=== PATIENT | female | born 1950 | race Caucasian/White ===

== ENCOUNTER 2016-04-08 05:56 | Inpatient (IN) | payer MEDICAID ==
[2016-04-01 15:29] VITALS: BMI 27.3
[~2016-04-08 05:56] MED LIST: ACETAMINOPHEN TAB 500 MG TAB PO ONE; DEXAMETHASONE SOD PHOSPHATE 10 MG/ML 1 ML VIAL IV ONE; HYDROmorphone 1 MG/ML 1 ML SYRINGE IVP PRN; LACTATED RINGERS 1,000 ML IV SCH; MELOXICAM 7.5 MG TAB PO ONE; MIDAZOLAM 2 MG/2 ML VIAL IV PRN; ONDANSETRON 4 MG/2 ML VIAL IVP ONE; ROPIVACAINE 246.25 MG, EPINEPHrine 0.5 MG, KETOROLAC 30 MG, cloNIDine HCL/PF 80 MCG, WA... MISCELLANE ONE; TRANEXAMIC ACID 1,000 MG in SODIUM CHLORIDE 0.9% 100 ML IVPB ONE
[2016-04-08] MEDS ORDERED: LIDOCAINE 1% 20 ML VIAL (10MG/ML) FOR IV START INTRADERMA ONE (06:45)
[2016-04-08] MEDS ORDERED: MIDAZOLAM 2 MG/2 ML VIAL ONE (07:30)
[2016-04-08] MEDS ORDERED: PROPOFOL 10 MG/ML 20 ML VIAL IV ONE (07:30)
[2016-04-08] MEDS: CLINDAMYCIN 900 MG in DEXTROSE 5% IN WATER 50 ML IVPB ONE ×4 (07:30→11:03)
[2016-04-08] MEDS ORDERED: LACTATED RINGERS 1,000 ML BAG IV ONE (07:30)
[2016-04-08] MEDS ORDERED: TRANEXAMIC ACID 1,000 MG/10 ML VIAL ONE (07:30)
[2016-04-08] MEDS ORDERED: SODIUM CHLORIDE 0.9% IRRIG 3,000 ML BAG IRRIGATION ONE (07:30)
[2016-04-08] MEDS ORDERED: SODIUM CHLORIDE 0.9% IRRIG 1,000 ML BTL IRRIGATION ONE (07:30)
[2016-04-08] MEDS ORDERED: fentaNYL (PF) 50 MCG/ML 2 ML AMP ONE (07:30)
[2016-04-08] MEDS ORDERED: HEPARIN SODIUM,PORCINE 10,000 UNIT/ML 1 ML VIAL ONE (07:30)
[2016-04-08] MEDS ORDERED: SODIUM CHLORIDE 0.9% 100 ML BAG ONE (07:30)
[2016-04-08] MEDS ORDERED: DEXTROSE 5% IN WATER 50 ML BAG ONE (07:30)
[2016-04-08] MEDS ORDERED: diphenhydrAMINE 50 MG/ML 1 ML VIAL ONE (07:30)
[2016-04-08] MEDS ORDERED: CLINDAMYCIN 150 MG/ML 6 ML VIAL ONE (07:30)
[2016-04-08] MEDS: CLINDAMYCIN 1,800 MG in SODIUM CHLORIDE 0.9% IRRIGATIO 3,000 ML IRRIGATION ONE ×2 (08:23→11:04)
[2016-04-08] MEDS: LACTATED RINGERS 1,000 ML IV ONE ×2 (08:50→11:04)
--- NOTE | 2016-04-08 09:04 | XR ---
EXAMINATION TYPE: XR Hip Limited LT DATE OF EXAM: 04/08/2016 8:58 AM COMPARISON: NONE HISTORY: Postop There is a prosthetic hip in near anatomic alignment. There is soft tissue edema and emphysema. IMPRESSION: 1. Postoperative change. Appears in near-anatomic alignment.
--- NOTE | 2016-04-08 09:05 | FL ---
EXAMINATION TYPE: FL guidance operating room DATE OF EXAM: 04/08/2016 8:58 AM HISTORY: Flouroscopy time 37 seconds of fluoroscopy provided. IMPRESSION: 1. Fluoroscopy time.
--- NOTE | 2016-04-08 09:06 | P.OP ---
Date of Procedure: 04/08/16 Preoperative Diagnosis: Severe osteoarthritis left hip Postoperative Diagnosis: Severe osteoarthritis left hip Procedure(s) Performed: Left total hip arthroplasty with a direct anterior approach Implants: Veliz and nephew Polarstem size 2 standard [employer]iz [employer] Nephew R3, 3 hole acetabular shell, 52 mm [employer]hew reflection 6.5 mm cancellus screw, 20 mm 2 [employer]hew R3, XLPE 20 acetabular liner Veliz [employer] Nephew Oxinium femoral head 36 m, +0 All components were press-fit. The articulation is ceramic on polyethylene. Anesthesia: spinal Surgeon: Reza Batres Grinding Machine Operator Automatic #1: Catalina Zaman Estimated Blood Loss (ml): 150 (65 mL returned with Cell Saver) Pathology: other (Femoral head) Condition: stable Disposition: PACU Indications for Procedure: After failure of conservative treatment we discussed the surgical and nonsurgical treatment options at length. Patient wishes to proceed with a total hip arthroplasty with a direct anterior approach. Complications specific to this procedure were discussed at length, including but not limited to infection, leg length discrepancy, dislocation, and nerve injury. Patient is aware of all these complications and informed consent was obtained Operative Findings: The operative findings are consistent with severe osteoarthritis of the left hip Description of Procedure: Patient was seen and evaluated in the preoperative area, consent was reviewed, and the surgical site was marked with a skin marker. Patient was then brought to the operating room and given prophylactic antibiotics intravenously. 1 g of Tranexamic acid was also given. A spinal anesthetic was administered by the anesthesia department. The patient was then placed on the hand table with the bony prominences well-padded. The hip area was then prepped and draped in usual sterile fashion. A universal timeout was then performed, which confirmed the patient's name, surgical site, ALLERGIES, and procedure being performed. Next the incision site was located at 1 cm distal and 1 cm lateral to the anterior superior iliac spine. The skin and subcutaneous tissues were sharply incised. Incision was carefully dissected down to the fascia overlying the tensor fascia tomas muscle. This fascia was then incised in line with the incision. Next, using blunt finger dissection, the tensor fascia tomas muscle was dissected off its investing fascia. The muscle was then carefully retracted laterally with a cobra retractor over the lateral neck of the femur. Next, the circumflex vessels were identified and cauterized using the AquaMantis device. The anterior hip capsule was then exposed. The capsule was then opened and an inverted T fashion. Retention sutures were placed in the inferior arms of the capsule. Cobra retractors were then placed intracapsularly. The proximal femur was then visualized. The femoral neck was then osteotomized appropriate level above the lesser trochanter. Small amount of traction was placed with the hand table. A small wedge of bone was then removed from the remaining femoral head. Next, using a corkscrew femoral head was easily removed from the acetabulum. On gross visual inspection, the femoral head had complete loss of articular cartilage in multiple periarticular osteophytes. Attention was then turned to the acetabulum. the acetabulum was exposed and any remaining labrum was excised. Sequential reaming of the acetabulum was performed using fluoroscopic guidance. When the appropriate size was reached, a trial was then placed. The position and fit of the trial was checked with fluoroscopy. The trial was then removed. Then, using fluoroscopic guidance, the final implant was impacted at 20 of anteversion and 40 of abduction, and fully seated in the acetabulum. 2 screws were then placed in the acetabulum. Again fluoroscopy was used to check position of the screws. Next, the liner was then impacted, with a 20 elevated liner located in the anterior superior quadrant. Component locking was confirmed. Attention was then directed to the femur. With the aid of the Binta table, the femur was externally rotated to approximately 130, extended, and abducted under the opposite leg. A side hook was then placed under the proximal femur, and the side hook elevator was used to elevate the proximal femur. Retractors were then placed. A capsular release was performed, as well as a release of the conjoined tendon, which afforded excellent visualization of the proximal femur. Next, a box osteotome was used to lateralize the proximal femur. A merchandising team lead was then used to locate the femoral canal. Sequential broaching was then performed with appropriate size which afforded excellent fixation in the proximal femur. The calcar was then planed. A trial was then placed with appropriate head and neck, and the hip was gently reduced with the aid of the Binta table. Fluoroscopy was then used to check position of the components, as well as to ensure equal leg lengths. The hip was then gently dislocated and the trials were then removed. Final implants were then impacted and the hip was again reduced. Final fluoroscopic x-rays confirmed that the components were in anatomic position, as well as equal leg lengths. The hip was also taken through range of motion, and found to be stable. The hip was then copiously irrigated with antibiotic solution with pulsatile lavage. The hip was then irrigated with Irrisept solution. The soft tissues were then injected with ropivacaine solution. A second dose of 1 g of Tranexamic acid was given. the fascia was then closed with 2-0 strata fix suture. The subcutaneous tissue was closed with 3-0 Vicryl. The subcuticular tissue was closed with 30 strata fix suture. The skin was then closed with Dermabond tape. The patient was then transferred to the recovery room in stable condition. The Asst. Catalina Zaman was required due to the complexity of surgery, and the need for skilled insurance assistant for positioning, draping, exposure, retraction, and closure of the wound.and closure of the wound.
[2016-04-08] MEDS ORDERED: MAGNESIUM HYDROXIDE 2,400 MG/10 ML CUP PO PRN (09:42)
[2016-04-08] MEDS ORDERED: HYDROmorphone 1 MG/ML 1 ML SYRINGE IVP PRN ×3 (09:42)
[2016-04-08] MEDS ORDERED: hydrOXYzine PAMOATE 25 MG CAP PO PRN (09:42)
[2016-04-08] MEDS ORDERED: ONDANSETRON 4 MG/2 ML VIAL IVP PRN (09:42)
[2016-04-08] MEDS ORDERED: NALOXONE 0.4 MG/ML 1 ML VIAL IV PRN (09:42)
[2016-04-08] MEDS ORDERED: DIAZEPAM 5 MG TAB PO PRN ×2 (09:42)
[2016-04-08] MEDS ORDERED: HYDROcodone/APAP 5-325MG 1 EACH TAB PO PRN (09:42)
--- NOTE | 2016-04-08 10:19 | XR ---
EXAMINATION TYPE: XR Hip Limited LT DATE OF EXAM: 04/08/2016 9:59 AM CLINICAL HISTORY: Left hip arthritis. TECHNIQUE: Single AP portable view of left hip is obtained immediately postoperatively. COMPARISON: Left hip x-ray January 29, 2016 FINDINGS: Metallic hardware from total left hip arthroplasty is seen and appears satisfactory in alig nment and position. There is evidence of recent surgery with subcutaneous gas noted laterally. IMPRESSION: Metallic hardware from left hip arthroplasty is satisfactory in position.
[2016-04-08] MEDS: CLINDAMYCIN 900 MG in DEXTROSE 5% IN WATER 50 ML IVPB SCH ×4 (13:58→23:05)
[2016-04-08] MEDS: SODIUM CHLORIDE 0.9% 1,000 ML IV SCH ×2 (14:00→23:05)
[2016-04-08] MEDS: HYDROcodone/APAP 5-325MG 1 EACH TAB PO PRN ×2 (16:03→22:00)
[2016-04-08] MEDS: ASPIRIN 325 MG TAB PO SCH (20:42)
[2016-04-08] MEDS ORDERED: SENNOSIDES-DOCUSATE SODIUM 1 EACH TAB PO SCH (21:00)
[2016-04-09 01:35] VITALS: RESP 16
[2016-04-09] MEDS: HYDROcodone/APAP 5-325MG 1 EACH TAB PO PRN ×3 (03:11→15:04)
[2016-04-09 07:10] LABS: Basophils % (A) 0 %; CH 29.2; CHCM 32.7; Eosinophils % (A) 1 %; HCT 37.3 % (34.0-46.0); HDW 2.35; Luc # (Auto) 0.17; Luc % (Auto) 2; Lymphocytes # (A) 1.7 k/uL (1.0-4.8); Lymphocytes % (A) 23 %; MCH 28.8 pg (25.0-35.0); MCHC 32.1 g/dL (31.0-37.0); MCV 89.7 fL (80.0-100.0); Mean Platelet Volume 7.4; Monocytes # (A) 0.5 k/uL (0-1.0); Monocytes % (A) 6 %; Neutrophils # (A) 4.8 k/uL (1.3-7.7); Neutrophils % (A) 67 %; RBC 4.15 m/uL (3.80-5.40); RDW 12.7 % (11.5-15.5); WBC 7.2 k/uL (3.8-10.6); WBC (Perox) 7.36
[2016-04-09 07:24] LABS: Anion Gap 10 mmol/L; Blood Urea Nitrogen 17 mg/dL (7-17); Calcium 8.5 mg/dL (8.4-10.2); Carbon Dioxide 20 mmol/L (22-30); Chloride 110 mmol/L (98-107); Glucose 107 mg/dL (74-99); Non-African American GFR(MDRD) >60 (>60 ml/min/1.73 sqM); Potassium 4.5 mmol/L (3.5-5.1); Sodium 140 mmol/L (137-145)
[2016-04-09 07:49] VITALS: BP 123/61; PULSE 72; TEMP 97.4
--- NOTE | 2016-04-09 08:22 | P.DS ---
Providers Date of admission: 04/08/16 05:56 Expected date of discharge: 04/09/16 Attending physician: Reza Batres Consults: 04/08/16 09:42 Consult Physician Routine Consulting Provider: Andrew Winters Reason/Comments: medical management Do you want consulting provider notified?: Yes Primary care physician: Andrew Winters - Discharge Diagnosis(es) (1) Status post left hip replacement Current Visit: Yes Status: Acute (2) Primary osteoarthritis of left hip Current Visit: Yes Status: Acute Hospital Course: This is a pleasant 65-year-old female who was last seen in our office with complaints of left hip pain. Patient has known history of degenerative arthritis of the left hip and presented to discuss options. After discussion consideration the patient elected to proceed with a left total hip arthroplasty. Patient was seen preoperatively medically cleared for surgery by Dr. Winters. Patient was admitted to [facility] and underwent left total hip arthroplasty. The procedure was performed without complications or sequelae. The patient has done well postoperatively. Pain has been are reasonably controlled and is progressing with physical therapy. Side with Dr. Reza Batres. The patient has no new complaints today. Patient denies shortness of breath, nausea or abdominal pain. The patient appears comfortable and in no acute distress. Dressing is clean dry and intact. Incision is fine with no erythema or active drainage. She is able to perform active leg extension and knee motion. Calf is soft and nontender. The patient has good foot and ankle motion without difficulty. Lower extremities are neurovascularly intact. The patient is orthopedically stable for discharge if she does well with physical therapy this afternoon. Pertinent Studies: Laboratory Tests 04/09/16 06:48 WBC 7.2 RBC 4.15 Hgb 12.0 Hct 37.3 Patient Condition at Discharge: Good Plan - Discharge Summary New Discharge Prescriptions: Aspirin 325 mg PO BID #60 tab HYDROcodone/APAP 7.5-325MG [[place] 7.5] 1 - 2 each PO Q6HR PRN #90 tab PRN Reason: Pain Sennosides-Docusate Sodium [Senokot-S] 2 tab PO DAILY #60 tablet Discharge Medication List Acetaminophen Tab [Tylenol Tab] 500 mg PO Q4H PRN 04/01/16 [History] Calcium Carbonate/Vitamin D3 [Calcium 600-Vit D3 400 Caplet] 1 tab PO DAILY 06/13 [History] Fish Oil/Dha/Epa [Fish Oil 1,200 mg Fish Oil] 1 cap PO DAILY 04/01/16 [History] Meloxicam [Mobic] 15 mg PO DAILY 04/01/16 [History] Multivitamin [Multivitamins Adult Gummies] 1 tab PO DAILY 04/01/16 [History] traMADol HCl [Ultram] 50 mg PO Q6H PRN 04/01/16 [History] Aspirin 325 mg PO BID #60 tab 04/09/16 [Rx] HYDROcodone/APAP 7.5-325MG [[place] 7.5] 1 - 2 each PO Q6HR PRN #90 tab 04/09/16 [ Rx] Sennosides-Docusate Sodium [Senokot-S] 2 tab PO DAILY #60 tablet 04/09/16 [Rx] Follow up Appointment(s)/Referral(s): Reza Batres DO [Doctor of Osteopathic Medicine] - 2 Weeks Activity/Diet/Wound Care/Special Instructions: Weightbearing as tolerated with walker Daily dressing changes Keep incision clean and dry Call [facility] with questions or concerns [phone] Discharge Disposition: HOME WITH HOME HEALTH SERVICES
[2016-04-09] MEDS: ASPIRIN 325 MG TAB PO SCH (08:23)
[2016-04-09] MEDS ORDERED: MELOXICAM 7.5 MG TAB PO SCH (09:00)
--- NOTE | 2016-04-09 16:40 | P.HPIM ---
History of Present Illness H&P Date: 04/09/16 Chief Complaint: Left hip pain Patient is a 65-year-old female presenting to the hospital for elective total left hip arthroplasty after having failed conservative treatment in the outpatient setting. Patient is seen in surgical for which she is postop day #1. Patient is doing well. Denies chills, nausea, vomiting, shortness of breath, chest pain, or abdominal pain. Incisional pain controlled. Patient has been up ambulating with help of physical therapy. Patient is urinating without difficulty. Patient is tolerating diet. Afebrile. Vital signs stable. Past Medical History Past Medical History: Hyperlipidemia, Osteoarthritis (OA) Additional Past Medical History / Comment(s): BORDERLINE ELEV CHOLESTEROL. EPISODE OF HTN X1. History of Any Multi-Drug Resistant Organisms: None Reported Past Surgical History: Appendectomy, Joint Replacement Additional Past Surgical History / Comment(s): 04/08/16 total L hip arthroplasty. Other surgical hx: OVARIAN CYST EXC. LINUS EYE LASIK. MOLE EXC BACK. COLONOSCOPY. Past Anesthesia/Blood Transfusion Reactions: Motion Sickness Past Psychological History: No Psychological Hx Reported Additional Psychological History / Comment(s): Pt reside alone. she has a dog. She is independent. Smoking Status: Former smoker Past Alcohol Use History: Occasional Additional Past Alcohol Use History / Comment(s): SMOKED 20 YEARS, 1 PPD, QUIT 1988. Past Drug Use History: None Reported - Past Family History Mother Family Medical History: Cancer Additional Family Medical History / Comment(s): Mother had lung cancer. She of a CVA 2 days after surgery. Son(s) Family Medical History: Cancer Father Family Medical History: Congestive Heart Failure (CHF) Medications and Allergies Home Medications Medication Instructions Recorded Confirmed Type Acetaminophen Tab [Tylenol Tab] 500 mg PO Q4H PRN 04/01/16 04/08/16 History Calcium Carbonate/Vitamin D3 1 tab PO DAILY 04/01/16 04/08/16 History [Calcium 600-Vit D3 400 Caplet] Fish Oil/Dha/Epa [Fish Oil 1,200 1 cap PO DAILY 04/01/16 04/08/16 History mg Fish Oil] Meloxicam [Mobic] 15 mg PO DAILY 04/01/16 04/08/16 History Multivitamin [Multivitamins Adult 1 tab PO DAILY 04/01/16 04/08/16 History Gummies] traMADol HCl [Ultram] 50 mg PO Q6H PRN 04/01/16 04/08/16 History Allergies Allergy/AdvReac Type Severity Reaction Status Date / Time adhesive Allergy Unknown Verified 04/08/16 06:16 bacitracin Allergy Unknown Verified 04/08/16 06:16 [From Neosporin ([id number])] bacitracin zinc Allergy Unknown Verified 04/08/16 06:16 [From Neosporin ([id number])] neomycin sulfate Allergy Unknown Verified 04/08/16 06:16 [From Neosporin ([id number])] Penicillins Allergy Unknown Verified 04/08/16 06:16 polymyxin B Allergy Unknown Verified 04/08/16 06:16 [From Neosporin ([id number])] sulfamethoxazole Allergy Unknown Verified 04/08/16 06:16 [From Bactrim] trimethoprim [From Bactrim] Allergy Unknown Verified 04/08/16 06:16 bandaids Allergy Unknown Uncoded 04/08/16 06:16 Physical Exam Vitals: Vital Signs Temp Pulse Pulse Resp BP Pulse Ox 04/09/16 07:00 97.4 F L 72 16 123/61 95 04/09/16 00:45 98.0 F 78 16 110/60 96 04/08/16 19:30 98.6 F 90 18 117/56 95 Intake and Output 04/09/16 04/09/16 04/09/16 06:59 14:59 22:59 Intake Total 240 Balance 240 Intake: Oral 240 Other: Voiding Method Toilet Toilet GENERAL: Pt awake and alert, well-appearing, well-nourished, and in no acute distress. HEAD: Atraumatic, normocephalic. EYES: Pupils equal, round, and reactive to light, extraocular movements intact, sclera anicteric, conjunctiva are normal. ENT: Moist mucous membranes. NECK:Supple without lymphadenopathy or JVD. LUNGS: Breath sounds clear to auscultation bilaterally. No wheezes, rales, or rhonchi. HEART: Heart S1, S2, no S3 or S4. Regular rate and rhythm. No murmurs, rubs or gallops. ABDOMEN: Soft, nontender, nondistended, normoactive bowel sounds. No guarding, no rebound. EXTREMITIES: 2+ peripheral pulses. No edema. No calf tenderness. NEUROLOGICAL: Pt oriented x 3. Cranial nerves II through XII grossly intact. Strength and sensation grossly intact. PSYCH: Normal mood, normal affect. SKIN: Warm, dry. Left hip incision dry and intact. Results CBC & Chem 7: 04/09/16 06:48 04/09/16 06:48 Labs: Abnormal Lab Results - Last 24 Hours (Table) 04/09/16 Range/Units 06:48 Chloride 110 H (98-107) mmol/L Carbon Dioxide 20 L (22-30) mmol/L Glucose 107 H (74-99) mg/dL Thrombosis Risk Factor Assmnt - DVT/VTE Prophylaxis DVT/VTE Prophylaxis: Mechanical Prophylaxis ordered - Choose All That Apply Any of the Below Risk Factors Present?: Yes Each Factor Represents 1 point: Obesity (BMI >25) Other Risk Factors: Yes Each Risk Factor Represents 2 Points: Age 61-74 years, Major surgery Other congenital or acquired thrombophilia - If yes, enter type in comment: No Each Risk Factor Represents 5 Points: Elective major lower extremity arthoplasty Thrombosis Risk Factor Assessment Total Risk Factor Score: 10 Thrombosis Risk Factor Assessment Level: High Risk Assessment and Plan Plan: Impression: 1. Left hip osteoarthritis status post left total hip arthroplasty. 2. Hyperlipidemia. 3. History of nicotine dependence. Plan: Continue surgical management by orthopedic service. Continue current medications. Continue supportive treatment and pain management. Continue physical therapy. From medical standpoint, patient is stable for discharge to home. Patient will follow-up with Dr. Winters in 2 weeks post discharge. The above impression and plan have been discussed and directed by Dr. Winters. Connie GUTIERREZ acting as scribe for Dr. Winters.
== END 2016-04-09 15:33 | disposition home health service (06) | DRG 470 ==
LOC: 2ORMAIN 05:56 → 3SUR 09:19
PROVIDERS: ADMIT Orthopaedic Surgery; ATTEND Orthopaedic Surgery
PROC: 0SRB04A Replacement of Left Hip Joint with Ceramic on Polyethylene Synthetic Substitute, Uncemented, Open Approach (ICD-10-PCS; principal; 2016-04-08 07:30)
DX: M16.12 Unilateral primary osteoarthritis, left hip (principal); I10 Essential (primary) hypertension; E78.5 Hyperlipidemia, unspecified; Z87.891 Personal history of nicotine dependence; Z88.1 Allergy status to other antibiotic agents; Z88.0 Allergy status to penicillin; Z88.2 Allergy status to sulfonamides; Z82.49 Family history of ischemic heart disease and other diseases of the circulatory system
CPT/HCPCS: 73501; 80048; 85025; 86850; 86891; 86900; 86901; 88300; 88305; 88311

== ENCOUNTER 2020-07-25 10:33 | Emergency (ER) | payer MEDICARE, OTHER ==
[2020-07-25 10:40] VITALS: RESP 18; TEMP 97.9
[2020-07-25] MEDS ORDERED: SODIUM CHLORIDE 0.9% 1,000 ML IV ONE (11:16)
[2020-07-25] MEDS ORDERED: KETOROLAC 15 MG/ML 1 ML VIAL IVP STA (11:16)
[2020-07-25 11:21] LABS: Basophils # (A) 0.1 k/uL (0-0.2); Basophils % (A) 1 %; Eosinophils # (A) 0.2 k/uL (0-0.7); Eosinophils % (A) 2 %; HCT 44.1 % (34.0-46.0); HGB 15.4 gm/dL (11.4-16.0); Lymphocytes % (A) 18 %; MCHC 34.9 g/dL (31.0-37.0); MCV 86.2 fL (80.0-100.0); Mean Platelet Volume 6.8; Monocytes # (A) 0.5 k/uL (0-1.0); Monocytes % (A) 5 %; Neutrophils # (A) 8.4 k/uL (1.3-7.7); Neutrophils % (A) 73 %; Platelet Count 255 k/uL (150-450); RBC 5.11 m/uL (3.80-5.40); RDW 12.6 % (11.5-15.5); WBC 11.4 k/uL (3.8-10.6)
[2020-07-25 11:39] LABS: Albumin 4.5 g/dL (3.5-5.0); Calcium 10.1 mg/dL (8.4-10.2); Potassium 4.3 mmol/L (3.5-5.1); Total Bilirubin 0.6 mg/dL (0.2-1.3); Total Protein 7.2 g/dL (6.3-8.2)
--- NOTE | 2020-07-25 12:22 | CT ---
EXAMINATION TYPE: CT abdomen pelvis wo con DATE OF EXAM: 07/25/2020 COMPARISON: None HISTORY: Renal stone, left CT DLP: 858.5 mGycm Examination of the solid and hollow viscera is limited given the lack of contrast. FINDINGS: LUNG BASES: No evidence for nodule. No evidence for infiltrate. LIVER/GB: The gallbladder is unremarkable. No space-occupying hepatic lesion. There is hepatic steato sis identified. PANCREAS: No pancreatic mass identified. No inflammatory process seen. SPLEEN: No evidence for splenomegaly. No intrasplenic lesions seen. ADRENALS: No adrenal nodules identified. No evidence for thickening. KIDNEYS: 6.3 mm calculus mid left ureter resulting in moderate left-sided hydronephrosis with left re nal edema and perinephric stranding. Nonobstructing 2 mm calculus upper pole left kidney. No addition al calculi seen. Right kidney is unremarkable. BOWEL: Appendix has a normal appearance. No evidence of bowel obstruction. No inflammatory process. Lymph nodes: No evidence for adenopathy greater than 1 cm. Abdominal aorta: Atheromatous changes seen. No evidence for aneurysm. Genital organs: No significant abnormality. Other: No significant abnormality. IMPRESSION: 6.3 mm calculus mid left ureter resulting in moderate left-sided hydronephrosis with left renal edema and perinephric stranding.
[2020-07-25 12:57] LABS: Appearance,Urine Cloudy (Clear); Bacteria,Urine Many /hpf; Bilirubin,Urine Negative (Negative); Blood,Urine Large (Negative); Calcium Oxalate Crystals,Urine Occasional /hpf; Color,Urine Yellow; Glucose,Urine (UA) Negative (Negative); Ketones,Urine Negative (Negative); Leukocyte Esterase,Urine Moderate (Negative); Mucus,Urine Rare /hpf; Nitrite,Urine Positive (Negative); Protein,Urine Trace (Negative); RBC,Urine >182 /hpf (0-5); Specific Gravity,Urine 1.026 (1.001-1.035); Squamous Epithelial Cell,Urine 4 /hpf (0-4); Urobilinogen,Urine <2.0 mg/dL (<2.0); WBC,Urine 53 /hpf (0-5)
[2020-07-25] MEDS ORDERED: cefTRIAXone IN SWFI 1,000 MG/10 ML SYRINGE IVP STA (13:25)
[2020-07-25 13:28] VITALS: BP 186/90; PULSE 82
--- NOTE | 2020-07-25 15:03 | ED ---
Abdominal Pain HPI - General Chief Complaint: Abdominal Pain Stated Complaint: possible kidney stone Time Seen by Provider: 07/25/20 10:41 Source: patient Mode of arrival: ambulatory Limitations: no limitations - History of Present Illness Initial Comments: 69-year-old female presents emergency Department with reported left-sided flank pain. Patient reports that the pain started around 3:00 this morning. She did take some Tylenol and was able to go to bed. States that when she awoke in the morning the pain was much worse. She had associated nausea because the pain was so severe. Pain was persistent and therefore she came into the emergency room for evaluation. Denies previous history of kidney stones. No urinary complaints to include dysuria, hematuria or difficulty voiding. No changes in her bowel habits to include diarrhea, constipation, melenic stools or hematochezia. No fevers or chills. No other alleviating, precipitating or m odifying factors - Related Data Home Medications Medication Instructions Recorded Confirmed Acetaminophen Tab [Tylenol Tab] 500 mg PO Q4H PRN 04/01/16 04/08/16 Calcium Carbonate/Vitamin D3 1 tab PO DAILY 04/01/16 04/08/16 [Calcium 600-Vit D3 400 Caplet] Fish Oil/Dha/Epa [Fish Oil 1,200 1 cap PO DAILY 04/01/16 04/08/16 mg Fish Oil] Meloxicam [Mobic] 15 mg PO DAILY 04/01/16 04/08/16 Multivitamin [Multivitamins Adult 1 tab PO DAILY 04/01/16 04/08/16 Gummies] traMADol HCl [Ultram] 50 mg PO Q6H PRN 04/01/16 04/08/16 Previous Rx's Medication Instructions Recorded Aspirin 325 mg PO BID #60 tab 04/09/16 HYDROcodone/APAP 7.5-325MG [[place] 1 - 2 each PO Q6HR PRN #90 tab 04/09/16 7.5] Sennosides-Docusate Sodium 2 tab PO DAILY #60 tablet 04/09/16 [Senokot-S] Cephalexin [Keflex] 500 mg PO Q6HR 1 Days #28 cap 07/25/20 Ketorolac [Toradol] 10 mg PO Q8HR PRN #15 tab 07/25/20 Tamsulosin [Flomax] 0.4 mg PO DAILY #7 cap 07/25/20 Allergies Allergy/AdvReac Type Severity Reaction Status Date / Time adhesive Allergy Unknown Verified 07/25/20 10:37 bacitracin Allergy Unknown Verified 07/25/20 10:37 [From Neosporin ([id number])] bacitracin zinc Allergy Unknown Verified 07/25/20 10:37 [From Neosporin ([id number])] neomycin sulfate Allergy Unknown Verified 07/25/20 10:37 [From Neosporin ([id number])] Penicillins Allergy Unknown Verified 07/25/20 10:37 polymyxin B Allergy Unknown Verified 07/25/20 10:37 [From Neosporin ([id number])] sulfamethoxazole Allergy Unknown Verified 07/25/20 10:37 [From Bactrim] trimethoprim [From Bactrim] Allergy Unknown Verified 07/25/20 10:37 bandaids Allergy Unknown Uncoded 04/08/16 06:16 Review of Systems ROS Statement: Those systems with pertinent positive or pertinent negative responses have been documented in the HPI. ROS Other: All systems not noted in ROS Statement are negative. Past Medical History Past Medical History: Hyperlipidemia, Osteoarthritis (OA) Additional Past Medical History / Comment(s): arthritis, osteoarthritis History of Any Multi-Drug Resistant Organisms: None Reported Past Surgical History: Appendectomy, Joint Replacement Additional Past Surgical History / Comment(s): 04/08/16 total L hip arthr oplasty. Other surgical hx: OVARIAN CYST EXC. LINUS EYE LASIK. MOLE EXC BACK. COLONOSCOPY. Past Anesthesia/Blood Transfusion Reactions: Motion Sickness Past Psychological History: No Psychological Hx Reported Smoking Status: Former smoker Past Alcohol Use History: Occasional Past Drug Use History: None Reported - Past Family History Mother Family Medical History: Cancer Additional Family Medical History / Comment(s): Mother had lung cancer. She of a CVA 2 days after surgery. Son(s) Family Medical History: Cancer Father Family Medical History: Congestive Heart Failure (CHF) General Exam Limitations: no limitations General appearance: alert, in no apparent distress Head exam: Present: atraumatic, normocephalic, normal inspection Eye exam: Present: normal appearance, PERRL, EOMI. Absent: scleral icterus, conjunctival injection, periorbital swelling ENT exam: Present: normal exam, mucous membranes moist Neck exam: Present: normal inspection. Absent: tenderness, meningismus, lymphadenopathy Respiratory exam: Present: normal lung sounds bilaterally. Absent: respiratory distress, wheezes, rales, rhonchi, stridor Cardiovascular Exam: Present: regular rate, normal rhythm, normal heart sounds. Absent: systolic murmur, diastolic murmur, rubs, gallop, clicks GI/Abdominal exam: Present: soft, normal bowel sounds. Absent: distended, tenderness, guarding, rebound, rigid Extremities exam: Present: normal inspection, full ROM, normal capillary refill. Absent: tenderness, pedal edema, joint swelling, calf tenderness Back exam: Present: CVA tenderness (L) Neurological exam: Present: alert, oriented X3, CN II-XII intact Psychiatric exam: Present: normal affect, normal mood Skin exam: Present: warm, dry, intact, normal color. Absent: rash Course Vital Signs 07/25/20 07/25/20 07/25/20 10:38 12:25 13:10 Temperature 97.9 F Pulse Rate 84 87 82 Respiratory 18 18 18 Rate Blood Pressure 182/107 186/90 O2 Sat by Pulse 98 97 98 Oximetry Medical Decision Making - Medical Decision Making Upon arrival patient is placed into room 23. History and physical exam is performed. IV is established the patient is given dose of Toradol. Laboratory studies were conducted. Creatinine normal at 0.9. Urinalysis demonstrates large blood, positive nitrates, ear them 182 red blood cells, 53 with blood cells and many bacteria. CT is performed which demonstrates a 6 mm calculus mid left ureter. Moderate left-sided hydronephrosis. Due to the associated urinary tract infection I did speak with Dr Kaiser. He agrees that if the patient is not febrile at this time and remains hemodynamically stable at she may to discharged home. Patient is requesting discharge. She'll be sent home on Flomax, Toradol and Keflex. She is given a dose of Rocephin in the emergency room with instruction to start antibiotics tomorrow. Call and make an appointment with the urologist. She is very strict return parameters to come back to the emergency room and should she have uncontrolled pain, fevers or inability to void. Patient understood this. Given written and verbal discharge instructions and discharged home in stable condition - Lab Data Result diagrams: 07/25/20 11:00 07/25/20 11:00 Lab Results 07/25/20 07/25/20 07/25/20 Range/Units 11:00 11:00 11:00 WBC 11.4 H (3.8-10.6) k/uL RBC 5.11 (3.80-5.40) m/uL Hgb 15.4 (11.4-16.0) gm/dL Hct 44.1 (34.0-46.0) % MCV 86.2 (80.0-100.0) fL MCH 30.0 (25.0-35.0) pg MCHC 34.9 (31.0-37.0) g/dL RDW 12.6 (11.5-15.5) % Plt Count 255 (150-450) k/uL MPV 6.8 Neutrophils % 73 % Lymphocytes % 18 % Monocytes % 5 % Eosinophils % 2 % Basophils % 1 % Neutrophils # 8.4 H (1.3-7.7) k/uL Lymphocytes # 2.0 (1.0-4.8) k/uL Monocytes # 0.5 (0-1.0) k/uL Eosinophils # 0.2 (0-0.7) k/uL Basophils # 0.1 (0-0.2) k/uL Sodium 140 (137-145) mmol/L Potassium 4.3 (3.5-5.1) mmol/L Chloride 108 H (98-107) mmol/L Carbon Dioxide 22 (22-30) mmol/L Anion Gap 10 mmol/L BUN 20 H (7-17) mg/dL Creatinine 0.93 (0.52-1.04) mg/dL Est GFR (CKD-EPI)AfAm 74 (>60 ml/min/1.73 sqM) Est GFR (CKD-EPI)NonAf 64 (>60 ml/min/1.73 sqM) Glucose 105 H (74-99) mg/dL Plasma Lactic Acid Reji (0.7-2.0) mmol/L Calcium 10.1 (8.4-10.2) mg/dL Total Bilirubin 0.6 (0.2-1.3) mg/dL AST 51 H (14-36) U/L ALT 62 H (4-34) U/L Alkaline Phosphatase 96 (38-126) U/L Total Protein 7.2 (6.3-8.2) g/dL Albumin 4.5 (3.5-5.0) g/dL Lipase 224 (23-300) U/L Urine Color Yellow Urine Appearance Cloudy H (Clear) Urine pH 6.0 (5.0-8.0) Ur Specific [place] 1.026 (1.001-1.035) Urine Protein Trace H (Negative) Urine Glucose (UA) Negative (Negative) Urine Ketones Negative (Negative) Urine Blood Large H (Negative) Urine Nitrite Positive H (Negative) Urine Bilirubin Negative (Negative) Urine Urobilinogen <2.0 (<2.0) mg/dL Ur Leukocyte Esterase Moderate H (Negative) Urine RBC >182 H (0-5) /hpf Urine WBC 53 H (0-5) /hpf Ur Squamous Epith Cells 4 (0-4) /hpf Calcium Oxalate Crystal Occasional H (None) /hpf Urine Bacteria Many H (None) /hpf Urine Mucus Rare H (None) /hpf 07/25/20 Range/Units 11:00 WBC (3.8-10.6) k/uL RBC (3.80-5.40) m/uL Hgb (11.4-16.0) gm/dL Hct (34.0-46.0) % MCV (80.0-100.0) fL MCH (25.0-35.0) pg MCHC (31.0-37.0) g/dL RDW (11.5-15.5) % Plt Count (150-450) k/uL MPV Neutrophils % % Lymphocytes % % Monocytes % % Eosinophils % % Basophils % % Neutrophils # (1.3-7.7) k/uL Lymphocytes # (1.0-4.8) k/uL Monocytes # (0-1.0) k/uL Eosinophils # (0-0.7) k/uL Basophils # (0-0.2) k/uL Sodium (137-145) mmol/L Potassium (3.5-5.1) mmol/L Chloride (98-107) mmol/L Carbon Dioxide (22-30) mmol/L Anion Gap mmol/L BUN (7-17) mg/dL Creatinine (0.52-1.04) mg/dL Est GFR (CKD-EPI)AfAm (>60 ml/min/1.73 sqM) Est GFR (CKD-EPI)NonAf (>60 ml/min/1.73 sqM) Glucose (74-99) mg/dL Plasma Lactic Acid Reji 1.2 (0.7-2.0) mmol/L Calcium (8.4-10.2) mg/dL Total Bilirubin (0.2-1.3) mg/dL AST (14-36) U/L ALT (4-34) U/L Alkaline Phosphatase (38-126) U/L Total Protein (6.3-8.2) g/dL Albumin (3.5-5.0) g/dL Lipase (23-300) U/L Urine Color Urine Appearance (Clear) Urine pH (5.0-8.0) Ur Specific [place] (1.001-1.035) Urine Protein (Negative) Urine Glucose (UA) (Negative) Urine Ketones (Negative) Urine Blood (Negative) Urine Nitrite (Negative) Urine Bilirubin (Negative) Urine Urobilinogen (<2.0) mg/dL Ur Leukocyte Esterase (Negative) Urine RBC (0-5) /hpf Urine WBC (0-5) /hpf Ur Squamous Epith Cells (0-4) /hpf Calcium Oxalate Crystal (None) /hpf Urine Bacteria (None) /hpf Urine Mucus (None) /hpf Disposition Clinical Impression: Ureteral stone with hydronephrosis, UTI (urinary tract infection) Disposition: HOME SELF-CARE Condition: Stable Instructions (If sedation given, give patient instructions): Kidney Stones (ED), Urinary Tract Infection in Women (ED) Additional Instructions: Call to make an appointment with the urologist. Take the pain medications and antibiotics as directed. Return to the ED for any new or worsening symptoms. Please return for fevers, inability to urinate, weakness, uncontrolled pain. Prescriptions: Tamsulosin [Flomax] 0.4 mg PO DAILY #7 cap Cephalexin [Keflex] 500 mg PO Q6HR 1 Days #28 cap Ketorolac [Toradol] 10 mg PO Q8HR PRN #15 tab PRN Reason: Pain Is patient prescribed a controlled substance at d/c from ED?: No Referrals: Andrew Winters DO [Primary Care Provider] - 1-2 days Iglesia Kaiser MD [STAFF PHYSICIAN] - 1-2 days Time of Disposition: 15:03
== END 2020-07-25 15:48 | disposition home or self-care (01) ==
LOC: EC 10:33
DX: N13.6 Pyonephrosis (principal); N39.0 Urinary tract infection, site not specified; E78.5 Hyperlipidemia, unspecified; M19.90 Unspecified osteoarthritis, unspecified site; Z87.891 Personal history of nicotine dependence
CPT/HCPCS: 36415; 80053; 83605; 83690; 85025; 81001; 87086; 74176; 99284; 96374; 96375; J0696; J1885

== ENCOUNTER → 2020-08-17 | Outpatient (CLI) | payer MEDICARE, OTHER ==
--- NOTE | 2020-08-17 14:58 | XR ---
KUB HISTORY: N 20.0, kidney stones KUB and [address] scan 07/25/2020 There is a calcification at the level the L4 transverse process on the left measuring approximately 7 8 mm. There are vascular calcifications present within the pelvis. Postop changes noted to the left hip. There is spinal curvature, degenerative disc disease. Overlying artifacts. IMPRESSION: Left ureteral calculus is again noted.
== END | disposition home or self-care (01) ==
LOC: RADXRMAIN 09:53
PROVIDERS: ATTEND Urology
DX: N20.2 Calculus of kidney with calculus of ureter (principal)
CPT/HCPCS: 74018

== ENCOUNTER → 2020-09-10 | Outpatient (CLI) | payer MEDICARE, OTHER ==
--- NOTE | 2020-09-10 09:27 | XR ---
EXAMINATION TYPE: XR KUB DATE OF EXAM: 09/10/2020 COMPARISON: 08/18/2019 HISTORY: Post lithotripsy TECHNIQUE: One view abdominal series FINDINGS: The osseous structures are intact. Degenerative and scoliotic curvature of the spine. Arthropathy rig ht hip and postsurgical change left hip. The bowel gas pattern is nonspecific. Nonspecific calcifications in the left upper hemipelvis are stable from prior exam. Previously noted paraspinal left calcification is not seen with certainty on today's exam. IMPRESSION: 1. Left paraspinal calcification not seen with certainty on today's exam.
== END | disposition home or self-care (01) ==
LOC: RADXRMAIN 09:08
PROVIDERS: ATTEND Urology
DX: N20.1 Calculus of ureter (principal)
CPT/HCPCS: 74018

== ENCOUNTER → 2022-08-28 | Outpatient (CLI) | payer MEDICARE, OTHER ==
--- NOTE | 2022-08-29 08:36 | MM ---
Reason for Exam: Screening (asymptomatic). Last mammogram was performed 1 year(s) and 1 month(s) ago. Patient History: Menarche at age 15. First Full-Term at age 20. Postmenopausal. Patient has history of breast feeding. Other cancer, age 70. Core Biopsy on the Right side. Core Biopsy on the Left side. 09/19/2002, Benign Stereotactic Core Biopsy on the right side. 09/19/2002, Benign Stereotactic Core Biopsy on the right side. 03/07/2002, Benign Ultrasound-Guided Core Biopsy on the left side. Risk Values: Sunita 5 year model risk: 1.7%. NCI Lifetime model risk: 5.0%. Prior Study Comparison: 06/09/2011 Bilateral Screening Mammogram, [facility]. 06/16/2011 Left Diagnostic Mammogram, [facility]. 08/06/2021 Bilateral Screening Mammogram, [facility]. Tissue Density: The breast tissue is heterogeneously dense. This may lower the sensitivity of mammography. Findings: Analyzed By CAD. There is no suspicious group of microcalcifications or new suspicious mass in either breast. Overall Assessment: Benign, BI-RAD 2 Management: Screening Mammogram of both breasts in 1 year. . Patient should continue monthly self-breast exams. A clinical breast exam by your physician is recommended on an annual basis. This exam should not preclude additional follow-up of suspicious palpable abnormalities. Note on Sunita scores and lifetime risk: 1. A Sunita score greater than 3% is considered moderate risk. If this is the case, consider specialist referral to assess eligibility for a risk reducing agent. 2. If overall lifetime risk for the development of breast cancer is 20% or higher, the patient may qualify for future screening with alternating mammogram and breast MRI. Electronically signed and approved by: Adalid Stratton M.D. Radiologis
== END | disposition home or self-care (01) ==
LOC: RADMAMWWP 08:02
PROVIDERS: ATTEND Family Medicine
DX: Z12.31 Encounter for screening mammogram for malignant neoplasm of breast (principal); Z78.0 Asymptomatic menopausal state
CPT/HCPCS: 77063; 77067

== ENCOUNTER 2022-09-26 08:32 | Day surgery (SDC) | payer MEDICARE, OTHER ==
[2022-09-24 15:42] VITALS: BMI 28.3
[~2022-09-26 08:32] MED LIST changes: -ACETAMINOPHEN TAB 500 MG TAB PO ONE; -DEXAMETHASONE SOD PHOSPHATE 10 MG/ML 1 ML VIAL IV ONE; -HYDROmorphone 1 MG/ML 1 ML SYRINGE IVP PRN; -MELOXICAM 7.5 MG TAB PO ONE; -MIDAZOLAM 2 MG/2 ML VIAL IV PRN; -ONDANSETRON 4 MG/2 ML VIAL IVP ONE; -ROPIVACAINE 246.25 MG, EPINEPHrine 0.5 MG, KETOROLAC 30 MG, cloNIDine HCL/PF 80 MCG, WA... MISCELLANE ONE; -TRANEXAMIC ACID 1,000 MG in SODIUM CHLORIDE 0.9% 100 ML IVPB ONE
[2022-09-26 09:12] VITALS: TEMP 97.1
[2022-09-26] MEDS ORDERED: PROPOFOL 10 MG/ML 20 ML VIAL IV ONE (09:46)
--- NOTE | 2022-09-26 10:00 | P.PCN ---
Date of Procedure: 09/26/22 Procedure(s) Performed: BRIEF HISTORY: Patient is a 71-year-old pleasant white female scheduled for an elective colonoscopy as a part of screening for colon cancer. PROCEDURE PERFORMED: Colonoscopy. PREOPERATIVE DIAGNOSIS: Screening for colon cancer. IV sedation per Anesthesia. PROCEDURE: After informed consent was obtained, the patient, was brought into the endoscopy unit. IV sedation was administered by Anesthesia under continuous monitoring. Digital rectal examination was normal. Initially the Olympus CF-160 flexible video colonoscope was then inserted in the rectum, gradually advanced into the cecum without any difficulty. Careful examination was performed as the scope was gradually being withdrawn. Ileocecal valve and the appendiceal orifice were visualized and appeared normal. Prep was excellent. Mucosa of the cecum, ascending colon, transverse colon, descending colon, sigmoid colon, and rectum appeared normal. Scattered sigmoid diverticulosis but Retroflexion was performed in the rectum and no lesions were seen. The patient tolerated the procedure well. IMPRESSION: Normal-appearing colon from rectum to cecum with no evidence of colorectal neoplasia. Scattered sigmoid diverticula RECOMMENDATIONS: Findings of this examination were discussed with the patient as well as a family. She was advised to have a repeat screening colonoscopy in 10 years..
[2022-09-26 10:06] VITALS: BP 104/66; PULSE 73; RESP 16
== END 2022-09-26 10:35 | disposition home or self-care (01) ==
LOC: ORWHC2ENDO 08:32
PROVIDERS: ATTEND Internal Medicine Gastroenterology
DX: Z12.11 Encounter for screening for malignant neoplasm of colon (principal); K57.30 Diverticulosis of large intestine without perforation or abscess without bleeding; I10 Essential (primary) hypertension; E78.5 Hyperlipidemia, unspecified; E07.9 Disorder of thyroid, unspecified; M19.90 Unspecified osteoarthritis, unspecified site; Z79.899 Other long term (current) drug therapy; Z79.890 Hormone replacement therapy; Z98.890 Other specified postprocedural states
CPT/HCPCS: J2704; G0121

== ENCOUNTER 2022-11-08 22:48 | Emergency (ER) | payer MEDICARE, OTHER ==
[2022-11-08 23:31] LABS: Appearance,Urine Clear (Clear); Bacteria,Urine Occasional /hpf; Bilirubin,Urine Negative (Negative); Blood,Urine Trace (Negative); Color,Urine Orange; Glucose,Urine (UA) Negative (Negative); Ketones,Urine Negative (Negative); Leukocyte Esterase,Urine Small (Negative); Mucus,Urine Rare /hpf; Nitrite,Urine Negative (Negative); Protein,Urine Negative (Negative); RBC,Urine 2 /hpf (0-5); Specific Gravity,Urine 1.002 (1.001-1.035); Squamous Epithelial Cell,Urine <1 /hpf (0-4); Urobilinogen,Urine <2.0 mg/dL (<2.0); WBC,Urine 5 /hpf (0-5)
[2022-11-08] MEDS ORDERED: CIPROFLOXACIN HCL 500 MG TAB PO STA (23:33)
--- NOTE | 2022-11-08 23:33 | ED ---
Female Urogenital HPI - General Chief complaint: Urogenital Stated complaint: Uti Time Seen by Provider: 11/08/22 22:57 Source: patient Mode of arrival: ambulatory Limitations: no limitations - History of Present Illness Initial comments: Patient is a pleasant 72-year-old female presenting the emergency room with complaints of dysuria and urinary frequency for the last 24 hours despite use of [id number] Azo and other urinary treatment medication. She states that she is concerned regarding her symptoms that she is planning on traveling next week to [place]. She reports it has been many years since she had a urinary tract infection. She denies any associated symptoms including any hematuria, abdominal pain, pelvic pain, flank pain, nausea, vomiting, fevers or chills. She has a past medical history significant for hypertension, hyperlipidemia and osteoarthritis. - Related Data Home Medications Medication Instructions Recorded Confirmed Multivitamin [Multivitamins Adult 1 tab PO DAILY 04/01/16 09/24/22 Gummies] Atorvastatin [Lipitor] 10 mg PO DAILY 09/24/22 09/24/22 amLODIPine BESYLATE/BENAZEPRIL 1 cap PO DAILY 09/24/22 09/24/22 [amLODIPine BESYLATE/BENAZEPRIL 5-20 mg] Previous Rx's Medication Instructions Recorded Ciprofloxacin HCl [Cipro] 500 mg PO Q12HR 5 Days #9 tab 11/08/22 Allergies Allergy/AdvReac Type Severity Reaction Status Date / Time adhesive Allergy Unknown Verified 11/08/22 22:53 bacitracin Allergy Unknown Verified 11/08/22 22:53 [From Neosporin ([id number])] bacitracin zinc Allergy Unknown Verified 11/08/22 22:53 [From Neosporin ([id number])] neomycin sulfate Allergy Unknown Verified 11/08/22 22:53 [From Neosporin ([id number])] Penicillins Allergy Unknown Verified 11/08/22 22:53 polymyxin B Allergy Unknown Verified 11/08/22 22:53 [From Neosporin ([id number])] sulfamethoxazole Allergy Unknown Verified 11/08/22 22:53 [From Bactrim] trimethoprim [From Bactrim] Allergy Unknown Verified 11/08/22 22:53 bandaids Allergy Unknown Uncoded 11/08/22 22:53 Review of Systems ROS Statement: Those systems with pertinent positive or pertinent negative responses have been documented in the HPI. ROS Other: All systems not noted in ROS Statement are negative. Past Medical History Past Medical History: Hyperlipidemia, Hypertension, Osteoarthritis (OA) Additional Past Medical History / Comment(s): arthritis, osteoarthritis History of Any Multi-Drug Resistant Organisms: None Reported Past Surgical History: Appendectomy, Joint Replacement Additional Past Surgical History / Comment(s): 04/08/16 total L hip arthroplasty. Other surgical hx: OVARIAN CYST EXC. LINUS EYE LASIK. MOLE EXC BACK. COLONOSCOPY. kidney stones Past Anesthesia/Blood Transfusion Reactions: No Reported Reaction, Motion Sickness Additional Past Anesthesia/Blood Transfusion Reaction / Comment(s): no blood transfusion Past Psychological History: No Psychological Hx Reported Smoking Status: Former smoker Past Alcohol Use History: Occasional Past Drug Use History: None Reported - Past Family History Mother Family Medical History: Cancer Additional Family Medical History / Comment(s): Mother had lung cancer. She of a CVA 2 days after surgery. Son(s) Family Medical History: Cancer Father Family Medical History: Congestive Heart Failure (CHF) General Exam Limitations: no limitations General appearance: alert, in no apparent distress Head exam: Present: atraumatic, normocephalic, normal inspection Eye exam: Present: normal appearance, PERRL, EOMI. Absent: scleral icterus, conjunctival injection, periorbital swelling ENT exam: Present: normal exam, mucous membranes moist Neck exam: Present: normal inspection, full ROM Respiratory exam: Absent: respiratory distress, accessory muscle use Cardiovascular Exam: Present: regular rate GI/Abdominal exam: Absent: distended Extremities exam: Present: normal inspection. Absent: pedal edema, joint swelling Back exam: Present: normal inspection. Absent: CVA tenderness (R), CVA tenderness (L) Neurological exam: Present: alert, oriented X3, CN II-XII intact Psychiatric exam: Present: normal affect, normal mood Skin exam: Present: warm, dry, intact, normal color. Absent: rash Course Vital Signs 11/08/22 22:52 Temperature 98 F Pulse Rate 71 Respiratory 18 Rate Blood Pressure 151/83 O2 Sat by Pulse 95 Oximetry Medical Decision Making - Medical Decision Making Was pt. sent in by a medical professional or institution (, PA, [employer], urgent care, hospital, or penitentiary...) When possible be specific @ -No Did you speak to anyone other than the patient for history (EMS, parent, family, police, friend...)? What history was obtained from this source @ -No Did you review nursing and triage notes (agree or disagree)? Why? @ -I reviewed and agree with nursing and triage notes Were old charts reviewed (outside hosp., previous admission, EMS record, old EKG, old radiological studies, urgent care reports/EKG's, penitentiary records)? Report findings @ -No old charts were reviewed Differential Diagnosis (chest pain, altered mental status, abdominal pain women, abdominal pain men, vaginal bleeding, weakness, fever, dyspnea, syncope, headache, dizziness, GI bleed, back pain, seizure, CVA, palpatations, mental health, musculoskeletal)? @ -Differential dysuria: UTI, cystitis, pyelonephritis, kidney stone, this is not meant to be an all- inclusive list. EKG interpreted by me (3pts min.). @ -None done X-rays interpreted by me (1pt min.). @ -None done CT interpreted by me (1pt min.). @ -None done U/S interpreted by me (1pt. min.). @ -None done What testing was considered but not performed or refused? (CT, X-rays, U/S, labs)? Why? @ -None What meds were considered but not given or refused? Why? @ -None Did you discuss the management of the patient with other professionals (professionals i.e. , PA, [employer], lab, RT, psych nurse, social work job titles, litigation attorney, teacher, chief security officer, vocational case manager)? Give summary @ -No Was smoking cessation discussed for >3mins.? @ -No Was critical care preformed (if so, how long)? @ -No Were there social determinants of health that impacted care today? How? (Homelessness, low income, unemployed, alcoholism, drug addiction, transportation, low edu. Level, literacy, decrease access to med. care, longterm, rehab)? @ -No Was there de-escalation of care discussed even if they declined (Discuss DNR or withdrawal of care, Hospice)? DNR status @ -No What co-morbidities impacted this encounter? (DM, HTN, Smoking, COPD, CAD, Cancer, CVA, ARF, Chemo, Hep., AIDS, mental health diagnosis, sleep apnea, morbid obesity)? @ -None Was patient admitted / discharged? Hospital course, mention meds given and route, prescriptions, significant lab abnormalities, going to OR and other pertinent info. @ -72-year-old female presenting emergency room with complaints of dysuria and urinary frequency ongoing for greater than 24 hours. No concern regarding systemic symptoms. No indication for any diagnostic imaging or serum laboratory studies were obtained urinalysis with reflex to culture. Patient with multiple drug ALLERGIES. Discussed previous treatment for urinary tract infection. Will plan for Cipro to treat UTI if urine positive for urinary tract infection with first dose given prior to her departure from the emergency room. Urinalysis with trace blood, small leukocyte esterase, occasional bacteria and rare mucus, epithelial cells less than 1. Will proceed with treatment for urinary tract infection with Cipro due to drug ALLERGIES giving first dose now and completion of a 5 day course. Advised may continue gtvl-jxf-[id number] Azo but not for greater than 48 hours along with good hydration. Questions and concerns answered. Return parameters to the emergency room discussed. Will discharge home on ciprofloxacin to treat urinary tract infection advising good hydration and follow-up with primary care provider. Undiagnosed new problem with uncertain prognosis? @ -No Drug Therapy requiring intensive monitoring for toxicity (Heparin, Nitro, Insulin, Cardizem)? @ -No Were any procedures done? @ -No Diagnosis/symptom? @ -UTI Acute, or Chronic, or Acute on Chronic? @ -Acute Uncomplicated (without systemic symptoms) or Complicated (systemic symptoms)? @ -Uncomplicated Side effects of treatment? @ -No Exacerbation, Progression, or Severe Exacerbation? @ -No Poses a threat to life or bodily function? How? (Chest pain, [place], [place], pneumonia, PE, COPD, DKA, ARF, appy, cholecystitis, CVA, Diverticulitis, Homicidal, Suicidal, threat to staff... and all critical care pts) @ -No Case discussed with Dr. Carranza. - Lab Data Lab Results 11/08/22 Range/Units 23:02 Urine Color Coral Urine Appearance Clear (Clear) Urine pH 6.0 (5.0-8.0) Ur Specific Victor 1.002 (1.001-1.035) Urine Protein Negative (Negative) Urine Glucose (UA) Negative (Negative) Urine Ketones Negative (Negative) Urine Blood Trace H (Negative) Urine Nitrite Negative (Negative) Urine Bilirubin Negative (Negative) Urine Urobilinogen <2.0 (<2.0) mg/dL Ur Leukocyte Esterase Small H (Negative) Urine RBC 2 (0-5) /hpf Urine WBC 5 (0-5) /hpf Ur Squamous Epith Cells <1 (0-4) /hpf Urine Bacteria Occasional H (None) /hpf Urine Mucus Rare H (None) /hpf Disposition Clinical Impression: Urinary tract infection Disposition: HOME SELF-CARE Condition: Stable Instructions (If sedation given, give patient instructions): Urinary Tract Infection in Women (ED) Additional Instructions: Stay well hydrated. Complete course of antibiotic as prescribed. May continue [id number] Azo but is recommended not to continue for greater than 48 hours from initiation of treatment. Please follow-up with your primary care carlitos dodd. Please return to the Emergency Department if symptoms worsen or any other concerns. Prescriptions: Ciprofloxacin HCl [Cipro] 500 mg PO Q12HR 5 Days #9 tab Is patient prescribed a controlled substance at d/c from ED?: No Referrals: Andrew Winters DO [Primary Care Provider] - 1-2 days Time of Disposition: 23:39
[2022-11-08 23:45] VITALS: BP 134/83; PULSE 81; RESP 20; TEMP 98
== END 2022-11-08 23:45 | disposition home or self-care (01) ==
LOC: EC 22:48
DX: N39.0 Urinary tract infection, site not specified (principal); E78.5 Hyperlipidemia, unspecified; I10 Essential (primary) hypertension; Z79.899 Other long term (current) drug therapy; Z87.891 Personal history of nicotine dependence; Z88.0 Allergy status to penicillin; Z91.09 Other allergy status, other than to drugs and biological substances; Z88.2 Allergy status to sulfonamides; Z88.6 Allergy status to analgesic agent; Z88.8 Allergy status to other drugs, medicaments and biological substances
CPT/HCPCS: 81001; 99283

== ENCOUNTER → 2023-08-31 | Outpatient (CLI) | payer MEDICARE ==
--- NOTE | 2023-08-31 17:01 | BD ---
EXAMINATION TYPE: Axial Bone Density DATE OF EXAM: 08/31/2023 CLINICAL HISTORY: 72 years old Female. ICD-10 CODE: Z78.[address] Height: 65.5 Weight: 172 FRAX RISK QUESTIONS: Family History (Parent hip fracture): no History of Fracture in Adulthood: no Secondary Osteoporosis: no RISK FACTORS HISTORY OF: Surgery to Hip(left): yes When: 2016 MEDICATIONS: Thyroid Medications: no Osteoporosis Medications: no EXAM MEASUREMENTS: Bone mineral densitometry was performed using the [employer] System. Bone mineral density as measured about the Lumbar spine is: ----- L1-L4(G/cm2): 1.227 T Score Values are as follows: ----- L1: 0.3 ----- L2: -0.8 ----- L3: 0.7 ----- L4: 1.0 ----- L1-L4: 0.4 Z Score Values are as follows: ----- L1: 1.5 ----- L2: 0.4 ----- L3: 2.0 ----- L4: 2.3 ----- L1-L4: 1.7 Bone mineral density baseline Bone mineral density about the R hip (g/cm2): 0.993 T Score values are as follows: -----R Neck: -1.2 -----R Total: -0.1 Z Score values are as follows: -----R Neck: 0.3 -----R Total: 1.1 Bone mineral density baseline FRAX%s: The graph provided illustrates a 9.5% chance for a major osteoporotic fx and a 1.2% chance fo r the hips probability for fx in 10 years time. IMPRESSION: Osteopenia (T Score between -2.5 and -1). There is slightly increased risk of fracture and the patient may be considered for treatment. Re-Screen 2-5 years. NOTE: T-SCORE=SD OF THE YOUNG ADULT MEAN.
--- NOTE | 2023-09-01 16:04 | MM ---
Reason for Exam: Screening (asymptomatic). Last screening mammogram was performed 12 month(s) ago. Patient History: Menarche at age 15. First Full-Term at age 20. Postmenopausal. Patient has history of breast feeding. Other cancer, age 70. Core Biopsy on the Right side. Core Biopsy on the Left side. 09/19/2002, Benign Stereotactic Core Biopsy on the right side. 09/19/2002, Benign Stereotactic Core Biopsy on the right side. 03/07/2002, Benign Ultrasound-Guided Core Biopsy on the left side. Risk Values: Sunita 5 year model risk: 1.7%. NCI Lifetime model risk: 4.8%. Prior Study Comparison: 06/16/2011 Left Diagnostic Mammogram, [facility]. 08/06/2021 Bilateral Screening Mammogram, [facility]. 08/28/2022 Bilateral MG 3D screening mammo w/cad, [facility]. Tissue Density: The breasts are heterogeneously dense, which may obscure small masses. Findings: Analyzed By CAD. 2 microclips lateral right breast from prior biopsies. There is a lobulated focal asymmetry central outer aspect of the left breast, approximately 3:00 position which appears more defined and a pierced persist on 3-D images. Further evaluation recommended. Otherwise, no significant change. Overall Assessment: Incomplete: need additional imaging evaluation, BI-RAD 0 Management: Special View Mammogram of the left breast. Diagnostic Breast Ultrasound of the left breast. . [facility] will attempt to contact patient to return for supplemental views and ultrasound if indicated. Electronically signed and approved by: Bert Menon M.D. Radiologist
== END | disposition home or self-care (01) ==
LOC: RADMAMWWP 10:45
PROVIDERS: ATTEND Family Medicine
DX: Z12.31 Encounter for screening mammogram for malignant neoplasm of breast (principal); M85.88 Other specified disorders of bone density and structure, other site; Z78.0 Asymptomatic menopausal state
CPT/HCPCS: 77063; 77067; 77080

== ENCOUNTER → 2023-09-03 | Outpatient (CLI) | payer MEDICARE ==
--- NOTE | 2023-09-03 10:39 | MM ---
Reason for Exam: Additional evaluation requested from abnormal screening. Last screening mammogram was performed less than 1 month ago. Patient History: Menarche at age 15. First Full-Term at age 20. Postmenopausal. Patient has history of breast feeding. Other cancer, age 70. Core Biopsy on the Right side. Core Biopsy on the Left side. 09/19/2002, Benign Stereotactic Core Biopsy on the right side. 09/19/2002, Benign Stereotactic Core Biopsy on the right side. 03/07/2002, Benign Ultrasound-Guided Core Biopsy on the left side. Risk Values: Sunita 5 year model risk: 1.7%. NCI Lifetime model risk: 4.8%. Prior Study Comparison: 08/06/2021 Bilateral Screening Mammogram, [facility]. 08/28/2022 Bilateral MG 3D screening mammo w/cad, [facility]. 08/31/2023 Bilateral MG 3D screening mammo w/cad, [facility]. Tissue Density: Left: The breasts are heterogeneously dense, which may obscure small masses. Findings: Analyzed By CAD. On additional views, there is some persistent 9 mm isodense to low density nodularity at the central upper outer quadrant left breast anterior depth though less pronounced compared to the screening appearance. Further ultrasound evaluation recommended. Overall Assessment: Incomplete: need additional imaging evaluation, BI-RAD 0 Management: Diagnostic Breast Ultrasound of the left breast. Electronically signed and approved by: Bert Menon M.D. Radiologist
--- NOTE | 2023-09-03 10:50 | USB ---
Reason for Exam: Additional evaluation requested from abnormal screening. Patient History: Menarche at age 15. First Full-Term at age 20. Postmenopausal. Patient has history of breast feeding. Other cancer, age 70. Core Biopsy on the Right side. Core Biopsy on the Left side. 09/19/2002, Benign Stereotactic Core Biopsy on the right side. 09/19/2002, Benign Stereotactic Core Biopsy on the right side. 03/07/2002, Benign Ultrasound-Guided Core Biopsy on the left side. Risk Values: Sunita 5 year model risk: 1.7%. NCI Lifetime model risk: 4.8%. Technique: Method: Targeted. Prior Study Comparison: 08/06/2021 Bilateral Screening Mammogram, [facility]. 08/28/2022 Bilateral MG 3D screening mammo w/cad, [facility]. 08/31/2023 Bilateral MG 3D screening mammo w/cad, [facility]. Findings: The lateral section of the breast of the left breast, the axilla of the left breast and the retroareolar of the left breast were scanned. Targeted ultrasound upper-outer quadrant left breast including scanning of subareolar region and axilla shows a 9 x 7 x 4 mm mildly lobulated cyst at the 3:00 position, 2 cm from the nipple, mammographic correlate. No other solid or cystic lesion or axillary lymphadenopathy. Overall Assessment: Benign, BI-RAD 2 Management: Screening Mammogram of both breasts in 1 year. A clinical breast exam by your physician is recommended on an annual basis and results should be correlated with mammographic findings. This exam should not preclude additional follow-up of suspicious palpable abnormalities. Results were given to the patient verbally at the time of exam. Electronically signed and approved by: Bert Menon M.D. Radiologist
== END | disposition home or self-care (01) ==
LOC: RADMAMWWP 09:44
PROVIDERS: ATTEND Family Medicine
DX: N60.02 Solitary cyst of left breast (principal); R92.332 Mammographic heterogeneous density, left breast; Z78.0 Asymptomatic menopausal state
CPT/HCPCS: 77065; 76642; G0279; 77061